=== PATIENT | female | born 1980 | race Hispanic/Latino ===

== ENCOUNTER → 2020-03-18 | Outpatient (CLI) | payer BC | END | disposition home or self-care (01) | LOC: OIH 13:16 | PROVIDERS: ATTEND Internal Medicine | DX: J45.901 Unspecified asthma with (acute) exacerbation (principal) | CPT/HCPCS: 71046 ==

== ENCOUNTER 2024-05-21 09:17 | Observation (INO) | payer BC ==
[~2024-05-21] VITALS: Ht 157.5 cm; Wt 81.1 kg
[2024-05-21] MEDS ORDERED: IpraTROPium/alBUTERol SULFATE 3 ML SOLUTION IH PRN (13:00)
--- NOTE | 2024-05-21 13:10 | NUR ---
PT PLACED IN ROOM 13 FROM [facility]. ASSUMED CARE AT THIS TIME. PT IS AOX3 NO SIGNS OF DISTRESS
--- NOTE | 2024-05-21 13:22 | HMCIMG ---
CHEST 1VW REASON: PNEUMONIA COMPARISON: 03/18/2020 FINDINGS: Single view of the chest was obtained. Lungs are clear. Heart size is normal. There is no pulmonary vascular congestion. Mediastinum and bony thorax appear unremarkable. IMPRESSION: 1. Normal single view chest x-ray.
[2024-05-21] MEDS: cefTRIAXone 1G VIAL IVPB SCH (13:26)
[2024-05-21] MEDS: 1/2 NS 1000ML 1,000 ML IV SCH (13:26)
[2024-05-21] MEDS: AZITHROMYCIN 250 MG TABLET PO SCH (13:27)
--- NOTE | 2024-05-21 13:39 | NUR ---
pt does not take any home medications
--- NOTE | 2024-05-21 13:44 | EKG ---
[facility] Test Date: 2024-05-21 Test Time: 13:27:29 Pat Name: BRUCE ANDREWS Department: [facility] Room: 312 Gender: F Document Management Technician: [id number] : 1980 Requested By: AMARA POTTS Order Number: [id number] Reading MD: Saeid Swan Measurements Intervals [place] Rate: 79 P: 59 TN: 133 QRS: 25 QRSD: 82 T: 36 QT: 388 QTc: 446 Interpretive Statements Sinus rhythm No previous ECG available for comparison Electronically Signed On 05-22-2024 06:56:55 FAMILY MEDICINE RESIDENT by Saeid Swan Please click the below link to view image of tracing.
[2024-05-21 13:52] LABS: BASOPHILS # (AUTO) 0.03 K/uL (0.00-0.20); BASOPHILS % (AUTO) 0.4 % (0.0-5.0); EOSINOPHILS # (AUTO) 0.07 K/uL (0.00-0.70); EOSINOPHILS % (AUTO) 0.9 % (0.0-8.0); HEMATOCRIT 33.3 % (36-48); IMMATURE GRANULOCYTE ABSOLUTE 0.02 K/uL (0-1); LYMPHOCYTES # (AUTO) 1.9 K/uL (1.0-4.8); LYMPHOCYTES % (AUTO) 23.7 % (21.0-51.0); MEAN CORPUSCULAR HEMOGLOBIN 27.2 pg (27.0-33.0); MEAN CORPUSCULAR HGB CONC 32.7 g/dL (32.0-36.0); MONOCYTES # (AUTO) 0.6 K/uL (0.1-1.0); MONOCYTES % (AUTO) 7.1 % (3.0-13.0); NEUTROPHILS # (AUTO) 5.3 K/uL (1.8-7.7); NEUTROPHILS % (AUTO) 67.6 % (40.0-77.0); PLATELET COUNT (AUTO) 231 K/uL (130-400); RED BLOOD CELL COUNT(AUTO) 4.01 MIL/uL (4.00-5.50); WHITE BLOOD COUNT (AUTO) 7.8 K/uL (4.8-10.8)
[2024-05-21 14:35] VITALS: PULSE 90; RESP 18; O2SAT 100
[2024-05-21 14:45] LABS: ALBUMIN 3.5 g/dL (3.5-5.0); BILIRUBIN,TOTAL 0.6 mg/dL (0.2-1.0); CREATININE 0.7 mg/dL (0.5-1.0); POTASSIUM 3.3 mmol/L (3.5-5.1); TOTAL PROTEIN, SERUM 6.5 g/dL (6.0-8.3)
[2024-05-21] MEDS: guaiFENesin SUGAR-FREE 100 MG/5 ML UDCUP PO PRN (17:14)
--- NOTE | 2024-05-21 19:20 | NUR ---
TOOK OVER PATIENT AT THIS TIME
[2024-05-21] MEDS: IpraTROPium/alBUTERol SULFATE 3 ML SOLUTION IH SCH (19:45)
[2024-05-21 19:48] VITALS: PULSE 80; PULSE 83; RESP 17
--- NOTE | 2024-05-21 21:22 | NUR ---
ATTEMPTED TO CALL REPORT AT THIS TIME NURSE IS NOT AVAILALE, WILL CALL BACK
--- NOTE | 2024-05-21 21:31 | NUR ---
Nursing Note Report received from ER Nurse
--- NOTE | 2024-05-21 21:43 | NUR ---
Admission Pt arrived to room. Pt settled in room. No distress, A/O, no pain. Call light in reach
[2024-05-21 21:45] VITALS: BP 121/72; PULSE 93; RESP 20; TEMP 98.2
[2024-05-21 22:00] VITALS: O2SAT 99
[2024-05-21] MEDS: Solu-medROL 125MG VIAL IVP SCH (22:06)
--- NOTE | 2024-05-21 23:18 | NUR ---
Nursing Note Paged Dr. Ellison Pending call back
[2024-05-21 23:52] VITALS: BP 108/52; PULSE 75; RESP 20; TEMP 97.8
[2024-05-22] VITALS (12 sets, daily range): BP systolic 111–130; BP diastolic 55–74; PULSE 72–104; RESP 18–20; TEMP 97.7–98; O2SAT 95–99
--- NOTE | 2024-05-22 01:32 | NUR ---
Nursing note Dr. Ellison gave order for Tylenol 650 q4 prn
[2024-05-22] MEDS: acetaMINOPHEN 325 MG TAB PO PRN (02:01)
[2024-05-22 04:52] LABS: BASOPHILS # (AUTO) 0.01 K/uL (0.00-0.20); BASOPHILS % (AUTO) 0.1 % (0.0-5.0); HEMATOCRIT 32.2 % (36-48); IMMATURE GRANULOCYTE ABSOLUTE 0.03 K/uL (0-1); LYMPHOCYTES # (AUTO) 0.5 K/uL (1.0-4.8); LYMPHOCYTES % (AUTO) 6.8 % (21.0-51.0); MEAN CORPUSCULAR HEMOGLOBIN 27.3 pg (27.0-33.0); MEAN CORPUSCULAR HGB CONC 33.9 g/dL (32.0-36.0); MEAN CORPUSCULAR VOLUME 80.5 fL (79-99); MONOCYTES # (AUTO) 0.1 K/uL (0.1-1.0); MONOCYTES % (AUTO) 1.1 % (3.0-13.0); NEUTROPHILS # (AUTO) 6.9 K/uL (1.8-7.7); NEUTROPHILS % (AUTO) 91.6 % (40.0-77.0); PLATELET COUNT (AUTO) 226 K/uL (130-400); RED CELL DISTRIBUTION WIDTH 14.5 % (11.0-15.5); WHITE BLOOD COUNT (AUTO) 7.5 K/uL (4.8-10.8)
[2024-05-22 05:01] LABS: CREATININE 0.8 mg/dL (0.5-1.0); POTASSIUM 4.2 mmol/L (3.5-5.1)
--- NOTE | 2024-05-22 06:32 | NUR ---
Nursing Note Dr. Ellison arrived to room and spoke with pt and family member. Gave order to decrease steroid by half, order CT of chest w/o contrast. also stated no telemetry needed and possible d/c tomorrow or today if pt feels like she can be d/c today (call DR if pt feels better and wants to be d/c today).
[2024-05-22] MEDS: AZITHROMYCIN 500MG+NS 250ML 250 ML IVPB SCH (09:51)
[2024-05-22] MEDS: Solu-medROL 40MG VIAL IVP SCH (09:52)
[2024-05-22] MEDS: ENOXAPARIN SODIUM 40 MG/0.4 ML SYRINGE SQ SCH (09:54)
--- NOTE | 2024-05-22 12:04 | HMCIMG ---
CT CHEST W/O CONTRAST REASON: pneumonia COMPARISON: None. TECHNIQUE: Multiple sequential axial images of the chest were obtained from the thoracic inlet through the upper pole of the kidneys without intravenous contrast administration. FINDINGS: Lungs are clear. There are no focal masses or infiltrates. There is no evidence of acute pneumonia. There is normal-appearing pulmonary interstitial pattern. Heart size is normal. There is no pulmonary vascular congestion or pleural effusion. Hilar and mediastinal structures appear normal. Visualized upper abdominal structures are unremarkable as well. IMPRESSION: 1. Negative CT chest, no evidence of pneumonia. CT was performed with one or more following dose reduction techniques: automated exposure control, adjustment of the mA and kv according to patient's size, or use of a iterative reconstruction technique.
--- NOTE | 2024-05-22 19:55 | NUR ---
DISCHARGE PT PIV DC'D PT VERBALIZED UNDERSTANDING OF DISCHARGE INSTRUCTIONS PT GATHERED AND TOOK ALL BELONGINGS PT HAD NO FURTHER QUESTIONS AT TIME OF DISCHARGE
--- NOTE | 2024-05-22 20:30 | NUR ---
Nursing Note Pt was discharged by dayshift nurse but pending ride. Pt was taken down by wheelchair at 2030 when her ride arrived.
--- NOTE | 2024-05-22 22:45 | DS ---
Discharge Summary DIAGNOSE(S): [Acute bronchitis status post flu Dehydration] HOSPITAL COURSE SUMMARY: [Patient did well with antibiotics and steroidsCd scan was negative] TOURIST HOME KEEPER(S): [] PROCEDURE(S)/TREATMENT(S): [] PROBLEM(S): [] FOLLOW-UP TEST(S): [None] DISCHARGE INSTRUCTIONS: [Continue antibiotics and steroids at homeFollow up in 1 to 2 days] Home Meds No Active Prescriptions or Reported Meds AMARA POTTS MD May 22, 2024 22:45
--- NOTE | 2024-05-22 22:49 | HP ---
HISTORY AND PHYSICAL NOTE DATE OF CONSULTATION: 05/22/24 REASON FOR CONSULTATION: Shortness of breath HISTORY OF PRESENT ILLNESS: Patient had fluHad persistent cough shortness of breath is being admitted as outpatient management failed ALLERGIES: Coded Allergies: amoxicillin (Unverified Allergy, Unknown, 05/21/24) clavulanic acid (Unverified Allergy, Unknown, 05/21/24) HOME MEDS: No Active Prescriptions or Reported Meds VITAL SIGNS Vital Signs Date Time Temp Pulse Resp B/P (MAP) Pulse Ox O2 Delivery O2 Flow Rate FiO2 05/22/24 19:49 95 18 N/A Room Air 21 05/22/24 19:48 95 18 05/22/24 16:00 98.1 104 18 112/55 Room Air 05/22/24 12:00 98.1 86 115/73 98 05/22/24 11:36 97 18 N/A Room Air 21 05/22/24 11:35 97 18 05/22/24 09:54 95 Room Air* 0 21 05/22/24 08:00 97.7 84 18 130/74 95 05/22/24 07:32 84 18 N/A Room Air 21 05/22/24 07:32 84 18 05/22/24 04:00 98.1 72 20 111/67 98 Room Air 05/22/24 00:12 78 18 N/A Room Air 05/22/24 00:11 78 18 05/21/24 23:52 97.9 75 20 108/52 96 Room Air PHYSICAL EXAM heentNormal Neck Supple HeartNormal S1 and S2 Lungs expiratory Wheezing bilaterally Abdomen is soft Extremities no edema Skin normal Musculoskeletal normal Neurological normal LABORATORY RESULTS Laboratory Tests 05/21/24 13:44: White Blood Count 7.8, Red Blood Count 4.01, Hemoglobin 10.9, Hematocrit 33.3, Mean Corpuscular Volume 83.0, Mean Corpuscular Hemoglobin 27.2, Mean Corpuscular Hemoglobin Concent 32.7, Red Cell Distribution Width 15.0, Platelet Count 231, Mean Platelet Volume 11.2, Immature Granulocyte % (Auto) 0.3, Neutrophils (%) (Auto) 67.6, Lymphocytes (%) (Auto) 23.7, Monocytes (%) (Auto) 7.1, Eosinophils (%) (Auto) 0.9, Basophils (%) (Auto) 0.4, Neutrophils # (Auto) 5.3, Lymphocytes # (Auto) 1.9, Monocytes # (Auto) 0.6, Eosinophils # (Auto) 0.07, Basophils # (Auto) 0.03, Absolute Immature Granulocyte (auto 0.02, Nucleated Red Blood Cells 0.0, Sodium Level 140, Potassium Level 3.3, Chloride Level 107, Carbon Dioxide Level 28, Blood Urea Nitrogen 16, Creatinine 0.7, Glomerular Filtration Rate Calc 109, Random Glucose 85, Total Calcium 8.5, Total Bilirubin 0.6, Aspartate Amino Transf (AST/SGOT) 11, Alanine Aminotransferase (ALT/SGPT) 16, Alkaline Phosphatase 66, Troponin I High Sensitivity 19, Total Protein 6.5, Albumin 3.5 05/22/24 04:40: White Blood Count 7.5, Red Blood Count 4.00, Hemoglobin 10.9, Hematocrit 32.2, Mean Corpuscular Volume 80.5, Mean Corpuscular Hemoglobin 27.3, Mean Corpuscular Hemoglobin Concent 33.9, Red Cell Distribution Width 14.5, Platelet Count 226, Mean Platelet Volume 11.6, Immature Granulocyte % (Auto) 0.4, Neutrophils (%) (Auto) 91.6, Lymphocytes (%) (Auto) 6.8, Monocytes (%) (Auto) 1.1, Eosinophils (%) (Auto) 0.0, Basophils (%) (Auto) 0.1, Neutrophils # (Auto) 6.9, Lymphocytes # (Auto) 0.5, Monocytes # (Auto) 0.1, Eosinophils # (Auto) 0.00, Basophils # (Auto) 0.01, Absolute Immature Granulocyte (auto 0.03, Nucleated Red Blood Cells 0.0, Sodium Level 138, Potassium Level 4.2, Chloride Level 106, Carbon Dioxide Level 25, Blood Urea Nitrogen 14, Creatinine 0.8, Glomerular Filtration Rate Calc 93, Random Glucose 165, Total Calcium 8.7, White Cell Morphology Comment See comments PLAN Acute bronchitis Iv steroids Broncho dilatorAnd steroid and antibiotics Dehydration IV fluids AMARA POTTS MD May 22, 2024 22:49
== END 2024-05-22 20:30 | disposition home or self-care (01) ==
LOC: EDH 09:17 → EEVIPCON 09:17 → EDHIP 09:18 → 3BH 21:53
PROVIDERS: ADMIT Internal Medicine; ATTEND Internal Medicine
DX: J20.9 Acute bronchitis, unspecified (principal); E86.0 Dehydration; Z88.1 Allergy status to other antibiotic agents; Z88.8 Allergy status to other drugs, medicaments and biological substances; Z79.899 Other long term (current) drug therapy
CPT/HCPCS: 96365; 96366 ×2; 96375; 96367; 84484; 80053; 85025 ×2; 36415 ×2; 71045; 93005; 94640; 96376; 96372; 96361; 80048; 71250; G0378 ×32; G0379; J2919 ×2; J0696 ×2; J0456; J1650; 94664